=== PATIENT | female | born 1965 | race African-American/Black ===

== ENCOUNTER 2016-12-22 10:29 | Emergency (ER) | payer OTHER ==
[~2016-12-22] VITALS: Ht 165.1 cm; Wt 99.8 kg
[~2016-12-22 10:29] MED LIST: ADVAIR DISKUS 21 DSK PO; ALBUTEROL 3 ML3 ML INH; CARVEDILOL6.25 MG PO; COREG 12.5MG12.5 MG PO; DOCUSATE SODIU100 MG PO; FERROUS SULFAT325 M1 PO; HYDROCHLOROTHIA25 MG PO; HYDRODIURIL 2525 MG PO; IBUPROFEN800 MG PO; LISINOPRIL-HYDR1 TA1 PO; LISINOPRIL40 MG PO; MOBIC 15MG15 MG PO; MOBIC15 M1 PO; MOBIC15 MG PO; MOBIC7.5 M1 PO; MOTRIN800 MG PO; NAPROSYN375 MG PO; OXYCODONE5 M1 PO; PERCOCET 325 MG1 TA2 PO; PERCOCET 5-3251 EACH PO; PRINIVIL10 MG PO; PROAIR HFA0.09 MG/Ac INH; PROTONIX 40MG T40 MG PO; PROVERA 10 MG T10 MG PO; SENNA CON/DOCUS1 TAB PO; Senokot S PO; ZESTRIL40 MG PO; ZOFRAN ODT4 MG PO; ZOFRAN4 M1 SL
--- NOTE | 2016-12-22 10:57 | ED GENERAL ADULT ---
History of Present Illness General Chief Complaint: Headache Stated Complaint: "I GOT A HEADACHE" Source: patient Exam Limitations: no limitations Vital Signs & Intake/Output Vital Signs & Intake/Output Vital Signs Date Time Temp Pulse Resp B/P Pulse O2 O2 Flow FiO2 Ox Delivery Rate 12/22 1229 148/98 12/22 1156 72 160/100 12/22 1156 72 160/100 12/22 1156 72 160/100 12/22 1131 Room Air 12/22 1130 160/100 12/22 1034 96.0 72 20 191/110 98 Room Air Allergies Coded Allergies: NO KNOWN ALLERGIES (02/27/15) Reconcile Medications Albuterol Sulfate (Proair Hfa) 0.09 MG/Actuation [place] 2 PUFF INH DAILY PRN SHORTNESS OF BREATH (Reported) Albuterol Sulfate (Proventil) 2.5 MG/3 ML NEB 3 ML INH Q6P PRN SHORTNESS OF BREATH (Reported) Amlodipine Besylate 10 MG TABLET 1 TAB PO DAILY HEART (Reported) Amlodipine Besylate 10 MG TABLET 1 TAB PO DAILY HTN Carvedilol (Coreg) 12.5 MG TABLET 1 TAB PO BID HTN Carvedilol (Coreg) 12.5 MG TAB 1 TAB PO BID HTN Ferrous Sulfate 325 MG TAB 325 MG PO TID LOW BLOOD LEVELS FLUTICASONE/SALMETEROL (Advair 250-50 Diskus) 250 MCG-50 MCG/DOSE BLST.W.DEV 1 INH PO BID ASTHMA (Reported) Gabapentin 300 MG CAPSULE 1 CAP PO TID PAIN (Reported) Gabapentin 300 MG CAPSULE 1 CAP PO TID PAIN Hydrochlorothiazide 12.5 MG CAPSULE 1 CAP PO DAILY HTN Hydrochlorothiazide 25 MG TAB 1 TAB PO DAILY HTN Lisinopril 40 MG TABLET 1 TAB PO DAILY HTN Lisinopril (Zestril) 40 MG TAB 1 TAB PO DAILY HTN Meloxicam (Mobic) 15 MG TABLET 1 TAB PO DAILY PRN PAIN Meloxicam (Mobic) 7.5 MG TABLET 1 TAB PO DAILY PAIN Olanzapine (Zyprexa) 2.5 MG TABLET 1 TAB PO QPM SLEEP (Reported) Pantoprazole Sodium (Protonix) 40 MG TAB 40 MG PO DAILY GERD Triage Note: PT TO ED C/O HEADACHE X 5 DAYS. HAS NOT TRIED OTC MEDS. HAS NOT TAKEN AM BP MEDS YET TODAY. DENIED N/V. Triage Nurses Notes Reviewed? yes Onset: Abrupt Duration: day(s): Timing: recent history HPI: 12/22/16 11:30 AM This is a 51-year-old female presents to the emergency department complaining of right sided temporal headache. She also complains of pain to her left elbow. She said that she leaned on her elbow hard several days ago on has ongoing pain since. She said the headache is been going on for 3 days. It is intermittent. She said it coincided with her stopping her blood pressure medication. She was unable to refill this by her primary care doctor. Past History Travel History Traveled to [place] past 21 day No Medical History Any Pertinent Medical History? 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 No Review of Systems Review of Systems Constitutional: Denies: fever. EENTM: Denies: visual changes. Respiratory: Denies: short of breath. Cardiovascular: Denies: chest pain. GI: Denies: abdominal pain. Genitourinary: Reports: no symptoms. Musculoskeletal: Reports: see HPI. Skin: Denies: rash. Neurological/Psychological: Reports: headache. Hematologic/Endocrine: Denies: bruising, bleeding. Physical Exam Physical Exam General Appearance: well developed/nourished, alert, awake, anxious, mild distress Head: atraumatic, normal appearance Eyes: Bilateral: normal appearance, PERRL, EOMI, other (no papilledema). Ears, Nose, Throat: normal pharynx, normal ENT inspection, hearing grossly normal Neck: normal inspection, supple, full range of motion Respiratory: normal breath sounds, chest non-tender, no respiratory distress Cardiovascular: regular rate/rhythm Peripheral Pulses: 4+ radial (R), 4+ radial (L) Gastrointestinal: soft, non-tender Back: normal range of motion Extremities: normal inspection, normal range of motion, no edema Neurologic/Psych: no motor/sensory deficits, awake, alert, oriented x 3 Skin: intact, normal color, warm/dry Core Measures ACS in differential dx? No CVA/TIA Diagnosis: No Severe Sepsis Present: No Septic Shock Present: No Progress Differential Diagnoses I considered the following diagnoses in my evaluation of the patient: [ Intracranial bleed, pseudotumor cerebri, migraine, temporal arteritis, tension headache, symptomatic hypertension] Plan of Care: Orders Procedure Date/time Status XRY-ELBOW AP & LATERAL, LEFT 12/22 1133 Active Initial ED EKG: none Departure Departure Disposition: HOME OR SELF CARE Condition: Stable Clinical Impression Primary Impression: Hypertension Secondary Impressions: Headache, Neuropraxia of left upper extremity Referrals: CHAI VARMA APRN (PCP/Family) Departure Forms: Customer Survey General Discharge Information Prescriptions: Current Visit Scripts Meloxicam (Mobic) 1 TAB PO DAILY PRN PAIN #8 TAB Lisinopril 1 TAB PO DAILY #30 TAB Amlodipine Besylate 1 TAB PO DAILY #30 TAB Carvedilol (Coreg) 1 TAB PO BID #30 TAB Gabapentin 1 CAP PO TID #30 CAP Hydrochlorothiazide 1 CAP PO DAILY #30 CAP Comments 12/22/16 No chest pain, no shortness of breath, headache gone. X-ray of the left elbow was negative. The patient states her headache completely resolved with the medication. Her medications were renewed. She will be given an appointment with [facility] faculty practice for this week. Critical Care Note Critical Care Note Critical Care Time: non-applicable
[2016-12-22] MEDS ORDERED: ZYPREXA2.5 M1 PO (11:15)
[2016-12-22] MEDS ORDERED: AMLODIPINE BESY10 M1 PO ×2 (11:15→13:14)
[2016-12-22] MEDS ORDERED: GABAPENTIN300 M2 PO ×2 (11:15→13:14)
--- NOTE | 2016-12-22 12:26 | RADIOLOGY REPORT ---
EXAMINATION: XR ELBOW, LEFT CLINICAL INFORMATION: Left elbow pain. Evaluate for fracture. COMPARISON: None TECHNIQUE: Left elbow, AP and lateral views FINDINGS: Bones have normal density and alignment at the elbow. No acute fracture, subluxation, joint effusion or intra-articular ossific body. Small enthesophytes are present at the humeral epicondyles and sublime tubercle of the ulna. No focal soft tissue swelling around the elbow or proximal forearm. IMPRESSION: No acute findings at the left elbow.
[2016-12-22 12:29] VITALS: BP 148/98
[2016-12-22] MEDS ORDERED: HYDROCHLOROTH12.5 M3 PO (13:14)
[2016-12-22] MEDS ORDERED: LISINOPRIL40 M1 PO (13:14)
[2016-12-22] MEDS ORDERED: MOBIC15 M1 PO (13:14)
[2016-12-22] MEDS ORDERED: COREG12.5 M1 PO (13:14)
== END 2016-12-22 13:13 ==
LOC: ERH 10:29
DX: I10 Essential (primary) hypertension (principal); R51 Headache; T14.8 Other injury of unspecified body region; X58.XXXA Exposure to other specified factors, initial encounter; Z87.891 Personal history of nicotine dependence
CPT/HCPCS: 73070-LT

== ENCOUNTER 2018-05-23 11:03 | Emergency (ER) | payer OTHER ==
[~2018-05-23] VITALS: Ht 165.1 cm; Wt 113.4 kg
[~2018-05-23 11:03] MED LIST changes: +ADVAIR 250-501 EACH INH; -ADVAIR DISKUS 21 DSK PO; -ALBUTEROL 3 ML3 ML INH; +ALBUTEROL2.5 MG/3 M INH/SOL; +AMLODIPINE BESY10 M1 PO; +ASPIRIN81 M4 PO; +ATORVASTATIN CA40 M1 PO; +AUGMENTIN 875-1 EACH PO; +COREG12.5 M1 PO; +CYCLOBENZAPRINE10 M1 PO; +FERROUS SULFAT325 M3 PO; +GABAPENTIN300 M2 PO; +HYDROCHLOROTH12.5 M3 PO; +LISINOPRIL40 M1 PO; +PANTOPRAZOLE SO40 M1 PO; -PROAIR HFA0.09 MG/Ac INH; +PROAIR HFA8.5 GM INH; +ZOFRAN ODT4 M1 SL; +ZYPREXA2.5 M1 PO
[2018-05-23 11:10] VITALS: BP 117/83
--- NOTE | 2018-05-23 11:34 | ED GENERAL ADULT ---
History of Present Illness General Chief Complaint: Low Back Pain/Injury Stated Complaint: BACK PAIN S/P SPINAL FUSION SURGERY ON March Source: patient Exam Limitations: no limitations Vital Signs & Intake/Output Vital Signs & Intake/Output Vital Signs Date Time Temp Pulse Resp B/P B/P Pulse O2 O2 Flow FiO2 Mean Ox Delivery Rate 05/23 1110 97.0 86 18 117/83 97 Room Air Room Air Allergies Coded Allergies: NO KNOWN ALLERGIES (02/27/15) Triage Note: PT TO ED S/P CERVICAL FUSION March AT [facility], TO ED WITH C/O LOW BACK PAIN S/P "I WAS JUST PICKING UP MY GRANDKIDS TOYS, AND I'M NOT SUPPOSED TO CARRY A POCKETBOOK BUT IT'S NOT THAT HEAVY". Triage Nurses Notes Reviewed? yes Onset: Abrupt Duration: day(s): (2), better, continues in ED Timing: single episode today Injury Environment: home Severity: mild, moderate Severity Numbers: 5 No Modifying Factors: none Modifying Factors: Worsens With: movement. Associated Symptoms: back pain LMP (ages 10-50): post menopausal : No Patient currently breastfeeds: No HPI: 53 old female history of neck pain, anemia, hypertension, migraines evaluation of lower back pain. 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 She was the pain is located on both sides of lower back does not radiate. There is no direct trauma. 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 The pain is worse during these activities and worse with movement. She denies any numbness or tingling bowel or bladder dysfunction abdominal pain fever. No history of malignancy. Patient reports that on April 19 she had a cervical spine fusion and has been in a cervical collar since. She denies any worsening pain in her neck. She's been taking Percocet cyclobenzaprine and gabapentin with good improvement. She states that the pain is gotten better since first starting. (Jay HICKS,David) Reconcile Medications Albuterol Sulfate 2.5 MG/3 ML (0.083 %) VIAL.NEB 1 Vial INH/MATILDA Q4P PRN SHORTNESS OF BREATH (Reported) Albuterol Sulfate (Proair Hfa) 90 MCG HFA.AER.AD 2 PUF INH Q4-6 PRN PRN SHORTNESS OF BREATH (Reported) Amlodipine Besylate 10 MG TABLET 1 TAB PO DAILY HTN Aspirin (Aspirin*) 81 MG TAB.CHEW 1 TAB PO DAILY HEART HEALTH Atorvastatin Calcium 40 MG TABLET 40 MG PO 1700 HEART HEALTH Carvedilol (Coreg) 12.5 MG TABLET 1 TAB PO BID HTN Cyclobenzaprine HCl 10 MG TABLET 1 TAB PO QPM PRN SPASM DO NOT DRIVE WITH THIS MEDICATION Ferrous Sulfate 325 MG (65 MG IRON) TABLET 1 TAB PO TID SUPPLEMENT (Reported) Fluticasone/Salmeterol (Advair 250-50 Diskus) 250 MCG-50 MCG/DOSE BLST.W.DEV 1 PUF INH BID ASTHMA (Reported) Gabapentin 300 MG CAPSULE 1 CAP PO TID PAIN Hydrochlorothiazide 12.5 MG CAPSULE 1 CAP PO DAILY HTN Ibuprofen 800 MG TABLET 1 TAB PO TID PRN pain Lisinopril 40 MG TABLET 1 TAB PO DAILY HTN Meloxicam (Mobic) 15 MG TABLET 1 TAB PO DAILY PRN PAIN Olanzapine (Zyprexa) 2.5 MG TABLET 1 TAB PO QPM SLEEP (Reported) Ondansetron (Zofran Odt) 4 MG TAB.RAPDIS 1 TAB SL TID PRN NAUSEA Oxycodone HCl 5 MG TABLET 1 TAB PO Q4-6 PRN PRN pain Oxycodone HCl/Acetaminophen (Percocet 5-325 MG Tablet) 5 MG-325 MG TABLET 1 TAB PO BID PRN PAIN Pantoprazole Sodium 40 MG TABLET. 1 TAB PO DAILY ACID REFLUX (Reported) (Dennys Chappell DO) Past History Travel History Traveled to [place] past 21 day No Medical History Any Pertinent Medical History? 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 FH: diabetes mellitus SISTER FH: diabetes mellitus FATHER FH: stroke Hx Contributory? No (David Nicholas) Review of Systems Review of Systems Constitutional: Reports: no symptoms. EENTM: Reports: no symptoms. Respiratory: Reports: no symptoms. Cardiovascular: Reports: no symptoms. GI: Reports: no symptoms. Genitourinary: Reports: no symptoms. Musculoskeletal: Reports: see HPI, back pain, muscle pain, muscle stiffness. Skin: Reports: no symptoms. Neurological/Psychological: Reports: no symptoms. Hematologic/Endocrine: Reports: no symptoms. Immunologic/Allergic: Reports: no symptoms. All Other Systems: Reviewed and Negative (David Nicholas) Physical Exam Physical Exam General Appearance: well developed/nourished, no apparent distress, alert, awake Head: atraumatic, normal appearance Eyes: Bilateral: normal appearance, PERRL, EOMI. Ears, Nose, Throat: hearing grossly normal Neck: C collar is in place. No erythema bruising or swelling. No midline tenderness Respiratory: normal breath sounds, chest non-tender, no respiratory distress, lungs clear Cardiovascular: regular rate/rhythm, normal peripheral pulses Peripheral Pulses: 2+ tibialis posterior (R), 2+ tibialis posterior (L) Gastrointestinal: soft, non-tender Back: normal inspection, normal range of motion, no vertebral tenderness, mild bilateral lumbar paraspinal tenderness. No midline tenderness no step-offs or deformities no bruising swelling or abrasions no rashes full range of motion of the back is intact without pain. Patient is ambulating without difficulty Extremities: normal inspection, normal range of motion, no edema, straight leg raised (negative bilaterally) Neurologic/Psych: no motor/sensory deficits, awake, alert, oriented x 3, normal gait, normal mood/affect Reflexes: 2+: knee (R), knee (L). Skin: intact, normal color, warm/dry Core Measures ACS in differential dx? No CVA/TIA Diagnosis: No Sepsis Present: No Sepsis Focused Exam Completed? 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 The pain is well controlled with her pain medications. It does not seem to be getting worse. She has no numbness or tingling bowel or bladder dysfunction abdominal pain fever history of cancer chest pain or shortness of breath. Full range of motion of the back is intact she has no bony point tenderness to suggest fracture. Suspect this is a muscle strain. Patient reports she will continue to take her at home pain medications which have been working well she does not require any additional prescriptions. Advised her to avoid excessive heavy lifting or bending. Follow-up with her primary care doctor and surgeon. Discussed return precautions in detail patient agrees the plan Initial ED EKG: none (David Nicholas) Departure Departure Disposition: HOME OR SELF CARE Condition: Stable Clinical Impression Primary Impression: Low back pain Qualifiers: Chronicity: acute Back pain laterality: bilateral Sciatica presence : without sciatica Qualified Code: M54.5 - Low back pain Referrals: Jordyn Ibarra APRN (PCP/Family) Additional Instructions: Continue to take her prescribed medications as needed for pain. You can also use Tylenol and ibuprofen. Make a follow-up appointment with her primary care doctor and surgeon. If you have worsening pain numbness tingling bowel or bladder dysfunction abdominal pain fever or any other concerns return immediately. Departure Forms: Customer Survey General Discharge Information (David Nicholas) PA/VEGETABLE BUNCHER Co-Sign Statement Statement: ED Attending supervision documentation- [] I saw and evaluated the patient. I have also reviewed all the pertinent lab results and diagnostic results. I agree with the findings and the plan of care as documented in the PA's/VEGETABLE BUNCHER's documentation. [x] I have reviewed the ED Record and agree with the PA's/VEGETABLE BUNCHER's documentation. [] Additions or exceptions (if any) to the PAs/VEGETABLE BUNCHER's note and plan are summarized below: [] (Dennys Chappell DO) Critical Care Note Critical Care Note Critical Care Time: non-applicable (David Nicholas)
[2018-05-25] MEDS ORDERED: OXYCODONE HCL5 M1 PO (14:59)
[2018-05-25] MEDS ORDERED: IBUPROFEN800 M1 PO (14:59)
== END 2018-05-23 12:13 ==
LOC: ERH 11:03
DX: M54.5 Low back pain (principal)